=== PATIENT | male | born 1940 | race Caucasian/White ===

== ENCOUNTER 2019-08-05 06:00 | Emergency (ER) | payer MEDICARE ==
[~2019-08-05] VITALS: Ht 167.6 cm; Wt 109.3 kg
--- NOTE | 2019-08-05 06:15 | NUR ---
PT BIBRA 102 FOR C/O R RIB CAGE PAIN S/P FALL. - KO. NOTED W/ SMALL SKIN TEAR ON NOSE BRIDGE. REC'D FENTANYL 100MCG AND ZOFRAN ON THE FIELD. PT AAOX4, PLACED ON 2 LITERS O2 SATTING AT 96%. CONNECTED TO THE MONITOR AND POX
[2019-08-05] MEDS ORDERED: TDAP [DIPH/PERTUSSIS/TET] 0.5 ML VIAL IM ONE ×2 (06:27→06:30)
[2019-08-05] MEDS ORDERED: BACITRACIN ZINC OINT PACKET 1 EA PACKET TP ONE (06:30)
--- NOTE | 2019-08-05 06:31 | NUR ---
PT TAKEN TO CT
--- NOTE | 2019-08-05 06:57 | NUR ---
PT BACK FROM CT
--- NOTE | 2019-08-05 08:53 | NUR ---
PATIENT ABLE TO STAND UP WITH MINIMAL ASSISTANCE. C/O PAIN ON RIGHT RIB. PATIENT WAS ABLE TO VOID WITH A URINAL.
[2019-08-05] MEDS ORDERED: HYDROCODONE/APAP 5/325MG 1 EACH TABLET ONE (08:55)
[2019-08-05] MEDS ORDERED: HYDROCODONE/APAP 5/325MG 1 EACH TABLET PO ONE (09:00)
--- NOTE | 2019-08-05 09:10 | NUR ---
Patient discharged to home in stable condition. Written and verbal after care instructions given to daughter and verbalizes understanding of instruction. IV removed. Catheter intact and site benign. Pressure and 4x4 applied to site. No bleeding noted.
[2019-08-05 09:11] VITALS: BP 113/70
== END 2019-08-05 09:12 | disposition home or self-care (01) ==
LOC: ER 06:02
DX: S20.211A Contusion of right front wall of thorax, initial encounter (principal); S00.31XA Abrasion of nose, initial encounter; S09.8XXA Other specified injuries of head, initial encounter; I10 Essential (primary) hypertension; E78.5 Hyperlipidemia, unspecified; J44.9 Chronic obstructive pulmonary disease, unspecified; F32.9 Major depressive disorder, single episode, unspecified; Z98.890 Other specified postprocedural states; W01.198A Fall on same level from slipping, tripping and stumbling with subsequent striking against other object, initial encounter; Y93.89 Activity, other specified; Y92.89 Other specified places as the place of occurrence of the external cause; Y99.8 Other external cause status
CPT/HCPCS: 70450; 71045; 72125; 90471; 90715; 99285; A6403

== ENCOUNTER 2020-06-17 19:57 | Inpatient (IN) | payer MEDICARE ==
[~2020-06-17] VITALS: Ht 167.6 cm; Wt 97.1 kg
[2020-06-17] MEDS ORDERED: FUROSEMIDE 40 MG/4 ML VIAL IV ONE (20:00)
[2020-06-17] MEDS ORDERED: FUROSEMIDE 40 MG/4 ML VIAL ONE (20:11)
--- NOTE | 2020-06-17 20:32 | NUR ---
VINNYID SWABBED, SENT TO LAB.
[2020-06-17 20:41] LABS: BASOPHILS % (AUTO) 0.2 % (0.0-2.0); EOSINOPHILS % (AUTO) 0.1 % (0.0-6.0); HEMATOCRIT 45 % (39-51); HEMOGLOBIN 14.7 g/dL (13.5-17.5); LYMPHOCYTES # (AUTO) 1.9 /CMM (0.8-4.8); LYMPHOCYTES % (AUTO) 15.4 % (20.0-44.0); MEAN CORPUSCULAR HGB CONC 33 g/dl (31.0-36.0); MEAN CORPUSCULAR VOLUME 91 fL (80-96); MONOCYTES # (AUTO) 0.6 /CMM (0.1-1.30); MONOCYTES % (AUTO) 5.2 % (2.0-12.0); NEUTROPHILS # (AUTO) 9.5 /CMM (1.8-8.9); NEUTROPHILS % (AUTO) 79.1 % (43.0-81.0); PLATELET COUNT (AUTO) 178 /CMM (150-450); RED BLOOD CELL COUNT(AUTO) 4.93 MIL/uL (4.5-6.0); WHITE BLOOD COUNT (AUTO) 12.1 K/uL (4.3-11.0)
[2020-06-17 21:08] LABS: CALCIUM, SERUM 9.1 mg/dL (8.5-10.1); CARBON DIOXIDE 30 mmol/L (21-32); CHLORIDE 102 mmol/L (98-107); CREATININE 1.2 mg/dL (0.6-1.3); GLUCOSE 147 mg/dL (74-106); SODIUM SERUM 140 mmol/L (136-145); UREA NITROGEN, BLOOD 23 mg/dL (7-18)
[2020-06-17 21:13] LABS: ALANINE AMINOTRANSFERASE 39 U/L (12-78); ALBUMIN 3.6 g/dL (3.4-5.0); ALKALINE PHOSPHATASE 91 U/L (46-116); ASPARTATE AMINOTRANSFERASE 36 U/L (15-37); B-TYPE NATRIURETIC PEPTIDE 870 PG/ML (0-125); BILIRUBIN,DIRECT 0.1 mg/dL (0.0-0.2); BILIRUBIN,TOTAL 0.5 mg/dL (0.2-1.0); TOTAL PROTEIN, SERUM 7.2 g/dL (6.4-8.2)
--- NOTE | 2020-06-17 21:28 | NUR ---
CALL FROM LAB. RAPID COVID NEGATIVE.
[2020-06-17] MEDS ORDERED: ONDANSETRON HCL/PF 4 MG/2 ML VIAL IVP PRN (22:00)
[2020-06-17] MEDS ORDERED: Z GUARD REMEDY 2 OZ OINT TP PRN (22:00)
[2020-06-17] MEDS ORDERED: MAGNESIUM HYDROXIDE 30 ML UDC PO PRN (22:00)
[2020-06-17] MEDS ORDERED: MAG HYDROX/AL HYDROX/SIMETH 30 ML UDC PO PRN (22:00)
[2020-06-17] MEDS ORDERED: HYDROCODONE/APAP 5/325MG TABLET PO PRN (22:00)
[2020-06-17] MEDS ORDERED: MORPHINE SULFATE INJ 2 MG/ML DISP.SYRIN IV PRN (22:00)
[2020-06-17] MEDS ORDERED: ACETAMINOPHEN 325 MG TABLET PO PRN (22:00)
--- NOTE | 2020-06-17 22:15 | NUR ---
PATIENT CAME TO ER BED 8 BIBRA C/O SOB FROM HOME. PATIENT HAS NOT BEEN TESTED FOR COVID. PATIENT IS AAOX4. PATIENT IS 88% OXYGEN SATURATION ON ROOM AIR. PATIENT IS PLACED ON 2L OF N/C AND IS SATURATING AT 95%. BREATHING EVENLY AND UNLABORED. CONNECTED TO ELECTRIC LOCOMOTIVE CRANE OPERATOR.
--- NOTE | 2020-06-17 22:45 | NUR ---
REPORT GIVEN TO CHAGO ORTEGA FOR THEO.
--- NOTE | 2020-06-17 23:22 | NUR ---
PATIENT TAKEN UP TO ASSIGN ROOM FOR THEO.
[2020-06-17] MEDS ORDERED: IOHEXOL-350 100 ML VIAL IV ONE (23:31)
[2020-06-17] MEDS ORDERED: IV NS 0.9% 250 ML IV ONE (23:31)
--- NOTE | 2020-06-18 00:05 | NUR ---
RN ADMITTING NOTE RECEIVED PATIENT FROM RADIOLOGY ,SP CT ANGIO, VIA HOSPITAL BED ACCOMPANIED BY 2 RN'S FROM [facility]. PATIENT IS ALERT AND ORIENTED X4. PATIENT ON 2 L OF OXYGEN VIA NC WITH RESPIRATIONS EVEN AND UNLABORED, TOLERATING WELL, SATURATION AT 98%. COMPREHENSIVE PHYSICAL ASSESSMENT AND PATIENT CARE DONE. BRUISING NOTED AT LEFT HAND. PHOTO TAKEN AND PLACED IN CHART. PATIENT CONTINENT WITGH URINAL AT BEDSIDE. CALL LIGHT WITHIN REACH, SAFETY MEASURES AND ISOLATION PRECAUTION IN PLACE, WILL CONTINUE MONITOR AND ASSESS THROUGHOUT THE SHIFT. WILL CARRY OUT MD ORDERS ACCORDINGLY.
--- NOTE | 2020-06-18 00:08 | NUR ---
PATIENT CAME FROM ER AT 2307, A/O X4. NO S/S OF DISTRESS NOTED. NO COMPLAIN OF PAIN. BROUGHT THE PT TO CT SCAN FOR CT PULMONARY ANGIOGRAM CONSENTED AND ATTACHED TO THE CHART. AFTER THE CT SCAN, PT TRANSFERRED TO JESUS AT ROOM 105 AND ENDORSED TO SHANNON VALDOVINOS.
[2020-06-18 00:10] VITALS: BP 132/68
--- NOTE | 2020-06-18 01:35 | NUR ---
RN NOTE CT ANGIO RESULTED. DR JESSA MEJIA WAS NOTIFIED, AND ACKNOWLEDGED WITH NO NEW ORDERS. COMPLIANCE PROFESSIONAL AWARE.
[2020-06-18] MEDS: ENOXAPARIN SODIUM 40 MG/0.4 ML DISP.SYRIN SQ SCH ×2 (01:41→21:22)
[2020-06-18 01:52] LABS: C-REACTIVE PROTEIN 0.8 mg/dL (0.0-0.9)
[2020-06-18] MEDS: TRAMADOL HCL 50 MG TABLET PO PRN ×3 (03:32→20:08)
[2020-06-18 04:00] VITALS: BP_SYST 151; BP_SYST 158; BP_DIAS 70; BP_DIAS 90
--- NOTE | 2020-06-18 07:27 | NUR ---
RN CLOSING NOTE PATIENT REMAINS IN ROOM IN NO SIGNS OF RESPIRATORY DISTRESS, SATURATION AT >95% ON 2L O2 VIA NC. APPROPRIATE ISOLATION PRECAUTIONS MAINTAINED. SAFETY MEASURES IMPLEMENTED, BED IN LOWEST POSITION, LOCKED, SIDE RAILS UP, CALL LIGHT WITHIN REACH. ALL NEEDS AND ORDERS ADDRESSED DURING THE SHIFT. IV ACCESS MAINTAINED INTACT, SECURED AND FLUSHING WELL. ALL DUE MEDS GIVEN ORDERED & SCHEDULED ; PATIENT TOLERATED WELL. PATIENT KEPT CLEAN AND COMFORTABLE WITHIN THE SHIFT. PATIENT ENDORSED TO MARIA DE JESUS RN WITH STABLE VITAL SIGN AND FOR CONTINUATION OF CARE.
[2020-06-18 07:48] LABS: BASOPHILS # (AUTO) 0.1 /CMM (0.0-0.2); BASOPHILS % (AUTO) 0.6 % (0.0-2.0); EOSINOPHILS % (AUTO) 0.2 % (0.0-6.0); HEMATOCRIT 45 % (39-51); HEMOGLOBIN 14.7 g/dL (13.5-17.5); LYMPHOCYTES % (AUTO) 15.4 % (20.0-44.0); MEAN CORPUSCULAR HGB CONC 33 g/dl (31.0-36.0); MEAN CORPUSCULAR VOLUME 90 fL (80-96); MONOCYTES # (AUTO) 1.2 /CMM (0.1-1.30); MONOCYTES % (AUTO) 8.9 % (2.0-12.0); NEUTROPHILS # (AUTO) 9.8 /CMM (1.8-8.9); NEUTROPHILS % (AUTO) 74.9 % (43.0-81.0); PLATELET COUNT (AUTO) 173 /CMM (150-450); WHITE BLOOD COUNT (AUTO) 13.1 K/uL (4.3-11.0)
--- NOTE | 2020-06-18 07:49 | NUR ---
ARCHITECTURAL SUPERINTENDENT NOTE PATIENT IN BED ALERT ORIENTED, , ALL NEEDS ATTENDED , ON 2L NC NO SB NOTED AT THIS TIME , ON TELE MONITOR SR HR 78 , RT AC HL INTACT AND FLUSHED WELL , BED IN LOWEST AND LOCKED POSITION BED IN LOWEST AND LOCKED POSITION , CALL LIGHT WITHIN REACH , PLAN OF CARE DISCUSSED WITH PATIENT, WILL MONITOR
[2020-06-18 08:00] VITALS: BP 143/80
[2020-06-18] MEDS: ASPIRIN 81 MG TAB.CHEW PO SCH (08:33)
[2020-06-18] MEDS: FUROSEMIDE 40 MG/4 ML VIAL IV SCH ×2 (08:33→16:07)
[2020-06-18] MEDS ORDERED: VITA1TAB56 PO (08:55)
[2020-06-18] MEDS ORDERED: ALBU8.5H8 IH (08:55)
[2020-06-18] MEDS ORDERED: LEVO150T8 PO (08:55)
[2020-06-18] MEDS ORDERED: FURO-144 PO (08:55)
[2020-06-18] MEDS ORDERED: METO25TA3 PO (08:55)
[2020-06-18] MEDS ORDERED: POTA20TA83 PO (08:55)
[2020-06-18] MEDS ORDERED: ROSU5TAB PO (08:55)
[2020-06-18] MEDS ORDERED: ASPI-1169 PO (08:55)
[2020-06-18] MEDS ORDERED: DOCU-141 PO (08:55)
[2020-06-18] MEDS ORDERED: UBID100C13 PO (08:55)
[2020-06-18] MEDS ORDERED: TRAM50TA2 PO (08:55)
[2020-06-18] MEDS ORDERED: LANS30CA56 PO (08:55)
[2020-06-18] MEDS ORDERED: ALBU1.257 IH (08:55)
[2020-06-18] MEDS ORDERED: CALC500T52 PO (08:55)
[2020-06-18 09:46] LABS: CALCIUM, SERUM 9.3 mg/dL (8.5-10.1); CREATININE 0.8 mg/dL (0.6-1.3); MAGNESIUM 2.4 mg/dL (1.8-2.4); PHOSPHORUS 3.5 mg/dL (2.5-4.9); POTASSIUM 4.2 mmol/L (3.5-5.1)
[2020-06-18 09:57] LABS: THYROID STIMULATING HORMONE 2.194 uIU/mL (0.358-3.74)
[2020-06-18] MEDS ORDERED: TRAMADOL HCL 50 MG TABLET PO PRN (10:30)
[2020-06-18] MEDS ORDERED: ALBUTEROL FS 2.5 MG/3 ML VIAL.NEB IH PRN (10:30)
--- NOTE | 2020-06-18 11:22 | NUR ---
CYNTHIA ORTEGA NOTE [place] [facility] [place] ABLE TO [place] ,KEEP CLEAN DRY Addendum: 06/18/20 at 1159 by MARIA DE JESUS IRWIN RN HAVING LUNCH , ABLE TO EAT SELF, WILL MONITOR
[2020-06-18 12:00] VITALS: BP 125/81
--- NOTE | 2020-06-18 15:44 | NUR ---
CODING FILE CLERK NOTE PCR TEST DONE ORDERED GIVEN TO LAB SPOKE WITH CARRIE
[2020-06-18 16:00] VITALS: BP 130/61
--- NOTE | 2020-06-18 17:34 | NUR ---
PRODUCT MANAGEMENT INTERN NOTE SPOKE WITH DR CRAWLEY TO CLARIFY TRAMADOL ORDER, NOTIFIED PER PATIENT TAKING AT HOME Q6 HOUR PRN , OK TO CHANGE Q6 HOUR PRN , WILL F\U
--- NOTE | 2020-06-18 18:50 | NUR ---
WASTEWATER OPERATOR NOTES PT HAVING DINNER. ABLE TO FEED HIMSELF. ON 2L NC. NO SOB NOTED. CALL LIGHT WITHIN REACH. RAC LOCKED AND INTACT. FLUSHED WELL. BED IN LOWEST AND LACKED POSITION. WILL CONTINUE TO MONITOR.
--- NOTE | 2020-06-18 19:30 | NUR ---
COOK VEGETABLE OPENING NOTE RECEIVED PATIENT IN BED. A/OX2. ON OXYGEN 2L/MIN VIA NASAL CANNULA. RESPIRATIONS ARE EVEN AND UNLABORED. NO S/S SOB NOTED. C/O PAIN IN BOTH LEGS, WOULD LIKE HIS TRAMADOL. WILL ADMINISTER PAIN MEDICATION. EXTERNAL TELE MONITOR READ SINUS RHYTHM WITH PVC HR 69. IN NO APPARENT DISTRESS. IV ACCESS IN RAC#18 PATENT AND SALINE LOCKED. BED IS LOW AND LOCKED, HOB ELEVATED IN HIGH FOWLERS, SIDE RAILS UP X3, CALL LIGHT WITHIN REACH. WILL CONTINUE TO MONITOR THROUGHOUT SHIFT.
[2020-06-18 20:00] VITALS: BP 122/71
--- NOTE | 2020-06-18 20:09 | NUR ---
teletypewriter operator note administered prn tramadol 100mg for pain 8/10 in legs. patient was also concerned why he has not received his home medication of crestor, informed patient most medications on medication list have sindy converted or continues but the crestor does not have a dosage and if he can call someone who has access to his home to get the dosage and inform me.
[2020-06-18] MEDS: DOCUSATE SODIUM 100 MG CAPSULE PO SCH (21:22)
--- NOTE | 2020-06-18 21:28 | NUR ---
EMPLOYMENT CONSULTANT NOTE PATIENT INFORMED ME THAT HE CALLED A FAMILY MEMBER AND GOT HIS DOSAGE FOR HOME MEDICATION CRESTOR. IT IS 40MG. WILL INFORM STUDENT DEAN DRAFTER AUTOMOTIVE DESIGN JACKIE.
[2020-06-18] MEDS ORDERED: ROSU40TA PO (21:32)
--- NOTE | 2020-06-18 21:48 | NUR ---
BIAS MACHINE OPERATOR HELPER NOTE PLACED INFO FOR IN MED RECON. INFORMED AUTOMATIC SCREWMAKER SHYLA ABOUT PATIENT CONCERN. JENNIFER RN ASKED RN NAVDEEP IF MED WAS ORDERED NOW WILL NOT BE ABLE TO BE ACCESSED. RN SUP STATED NO D/T NOT AVAILABLE IN PHARMACY NIGHT LOCKER. PATIENT MADE AWARE THAT WE WILL ENDORSE TO TOMORROW SHIFT.
[2020-06-19] VITALS (7 sets, daily range): BP systolic 124–145; BP diastolic 64–82
[2020-06-19] MEDS: TRAMADOL HCL 50 MG TABLET PO PRN ×2 (06:10→15:55)
--- NOTE | 2020-06-19 06:11 | NUR ---
VIDEO PRODUCTION COORDINATOR NOTE ADMINISTERED PRN TRAMADOL 100MG FOR PAIN 8/10 IN BOTH LEGS. WILL REASSESS.
--- NOTE | 2020-06-19 07:13 | NUR ---
GRAPHITE DISK ASSEMBLER CLOSING NOTE PATIENT RESTING IN BED. A/OX2. TOLERATING ROOM AIR, O2 SAT 97%. RESP DISTRESS/ MANAGED PAIN WITH TRAMADOL. TELE MONITOR READ SINUS RHYTHM. NO DISTRESS. IV ACCESS MAINTAINED IN RAC#18. BED REMAINS LOW AND LOCKED, HOB ELEVATED IN HIGH FOWLERS, SIDE RAILS UP X3, CALL LIGHT WITHIN REACH. WILL ENDORSE TO NEXT SHIFT
--- NOTE | 2020-06-19 07:45 | NUR ---
PROCUREMENT ANALYST OPENING NOTE RECEIVED PT IN BED. AWAKE, A/O X4. ON ROOM AIR, O2 SAT @96%. NO SOB OR ANY RESPIRATORY DISTRESS AT THIS TIME. TELE MONITOR READS SR. IV ACCESS AT R AC #18 INTACT, PATENT AND FLUSHED. SAFETY MEASURES IN PLACE. BED LOCKED AND AT LOWEST POSITION WITH SIDE RAILS UP X2. HOB ELEVATED. NO PAIN REPORTED AT THIS TIME. WILL CONTINUE TO MONITOR
[2020-06-19] MEDS: LEVOTHYROXINE SODIUM 50 MCG TABLET PO SCH (08:23)
[2020-06-19] MEDS: POTASSIUM CHLORIDE 20 MEQ TAB.PRT.SR PO SCH (08:23)
[2020-06-19] MEDS: FUROSEMIDE 40 MG/4 ML VIAL IV SCH (08:23)
[2020-06-19] MEDS: CALCIUM CARBONATE (1250) 500 MG TABLET PO SCH (08:23)
[2020-06-19] MEDS: ASPIRIN 81 MG TAB.CHEW PO SCH (08:23)
[2020-06-19] MEDS: PANTOPRAZOLE 40 MG TABLET.DR PO SCH (08:23)
[2020-06-19] MEDS: METOPROLOL SUCCINATE 25 MG TAB.SR.24H PO SCH (08:24)
[2020-06-19] MEDS ORDERED: ASPIRIN 81 MG TAB.CHEW PO SCH (09:00)
--- NOTE | 2020-06-19 09:30 | NUR ---
RN NOTES LAB CALLED. PCR RESULT NEGATIVE. CHARGE NURSE AWARE.
[2020-06-19] MEDS: FUROSEMIDE 100 MG/10 ML VIAL IV SCH ×3 (12:37→21:48)
[2020-06-19 15:35] LABS: BILIRUBIN,URINE NEGATIVE (NEGATIVE); COLOR,URINE YELLOW (YELLOW); LEUKOCYTE ESTERASE ,URINE NEGATIVE (NEGATIVE); NITRITE, URINE NEGATIVE (NEGATIVE); PH,URINE 7.5 (5.0-8.0); PROTEIN,URINE NEGATIVE (NEGATIVE); UGLUCOSE NEGATIVE (NEGATIVE); UROBILINOGEN,URINE 0.2 EU/dL (0.2)
--- NOTE | 2020-06-19 18:55 | NUR ---
RAILROAD REPAIRER CLOSING NOTE PT COMFORTABLY SITTING IN CHAIR. A/O X4. ON ROOM AIR, O2 SAT @97%. NO SOB OR ANY RESPIRATORY DISTRESS AT THIS TIME. TELE MONITOR READS SR. IV ACCESS AT R AC #18 INTACT, PATENT AND FLUSHED. ALL DUE MEDS GIVEN. NEEDS ATTENDED. SAFETY MEASURES IN PLACE. BED LOCKED AND AT LOWEST POSITION WITH SIDE RAILS UP X2. HOB ELEVATED. NO PAIN REPORTED AT THIS TIME. WILL ENDORSE TO NIGHT NURSE FOR THEO.
--- NOTE | 2020-06-19 20:00 | NUR ---
RN NOTES PT COMFORTABLY SITTING IN CHAIR. A/O X4. ON ROOM AIR, O2 SAT @97%. NO SOB OR ANY RESPIRATORY DISTRESS AT THIS TIME. TELE MONITOR READS SR. IV ACCESS AT R AC #18 INTACT, PATENT AND FLUSHED. NO S/S OF ANY DISCOMFORT. SAFETY MEASURES IN PLACE. BED LOCKED AND AT LOWEST POSITION WITH SIDE RAILS UP X2. CALL LIGHT WITHIN REACH. WILL CONTINUE TO MONITOR.
--- NOTE | 2020-06-19 21:00 | NUR ---
TRANSFERRED PT TO ROOM 324-2, ACLS PER PROTOCOL. PATIENT A/OX4, ABLE TO MAKE NEEDS KNOWN. VITAL SIGNS WNL. ALL BELONGINGS, HEARING AIDS, GLASSES, AND CELLPHONE TRANSFERRED WITH PATIENT. GAVE REPORT TO
--- NOTE | 2020-06-19 21:45 | NUR ---
RN NOTES PT RECEIVED FROM JESUS IN STABLE CONDITION. WILL CONTINUE TO MONITOR. Addendum: 06/20/20 at 0641 by SURYA OCAMPO RN PT COMFORTABLY IN BED. A/O X4. ON ROOM AIR, O2 SAT @97%. NO SOB OR ANY RESPIRATORY DISTRESS AT THIS TIME. TELE MONITOR READS SR. IV ACCESS AT R AC #18 INTACT, PATENT AND FLUSHED. NEEDS ATTENDED. SAFETY MEASURES IN PLACE. BED LOCKED AND AT LOWEST POSITION WITH SIDE RAILS UP X2. HOB ELEVATED. NO PAIN REPORTED AT THIS TIME. WILL CONTINUE TO MONITOR.
[2020-06-19] MEDS ORDERED: FUROSEMIDE 40 MG/4 ML VIAL ONE (21:46)
[2020-06-19] MEDS: DOCUSATE SODIUM 100 MG CAPSULE PO SCH (21:52)
[2020-06-19] MEDS: ENOXAPARIN SODIUM 40 MG/0.4 ML DISP.SYRIN SQ SCH (21:54)
[2020-06-20] VITALS: BP 119/72
[2020-06-20 00:21] VITALS: BP 119/72
[2020-06-20 04:00] VITALS: BP 134/66
[2020-06-20 04:45] VITALS: BP 134/66
[2020-06-20] MEDS: TRAMADOL HCL 50 MG TABLET PO PRN ×2 (05:35→13:11)
--- NOTE | 2020-06-20 06:41 | NUR ---
RN NOTES PT COMFORTABLY SITTING IN CHAIR. A/O X4. ON ROOM AIR, O2 SAT @97%. NO SOB OR ANY RESPIRATORY DISTRESS AT THIS TIME. TELE MONITOR READS SR. IV ACCESS AT R AC #18 INTACT, PATENT AND FLUSHED. ALL DUE MEDS GIVEN. NEEDS ATTENDED. SAFETY MEASURES IN PLACE. BED LOCKED AND AT LOWEST POSITION WITH SIDE RAILS UP X2. HOB ELEVATED. NO PAIN REPORTED AT THIS TIME. WILL ENDORSE TO DAYSHIFT NURSE.
[2020-06-20 07:17] LABS: BASOPHILS # (AUTO) 0.1 /CMM (0.0-0.2); BASOPHILS % (AUTO) 0.8 % (0.0-2.0); EOSINOPHILS % (AUTO) 0.7 % (0.0-6.0); HEMATOCRIT 49 % (39-51); HEMOGLOBIN 16.4 g/dL (13.5-17.5); LYMPHOCYTES # (AUTO) 2.8 /CMM (0.8-4.8); LYMPHOCYTES % (AUTO) 18.8 % (20.0-44.0); MEAN CORPUSCULAR HGB CONC 34 g/dl (31.0-36.0); MEAN CORPUSCULAR VOLUME 89 fL (80-96); MONOCYTES # (AUTO) 1.5 /CMM (0.1-1.30); NEUTROPHILS # (AUTO) 10.4 /CMM (1.8-8.9); NEUTROPHILS % (AUTO) 69.7 % (43.0-81.0); PLATELET COUNT (AUTO) 200 /CMM (150-450); RED BLOOD CELL COUNT(AUTO) 5.48 MIL/uL (4.5-6.0)
[2020-06-20 07:23] LABS: CREATININE 0.9 mg/dL (0.6-1.3); POTASSIUM 3.4 mmol/L (3.5-5.1)
[2020-06-20] MEDS: PANTOPRAZOLE 40 MG TABLET.DR PO SCH (07:38)
[2020-06-20] MEDS: LEVOTHYROXINE SODIUM 50 MCG TABLET PO SCH (07:38)
[2020-06-20 08:00] VITALS: BP 99/72
[2020-06-20] MEDS: ASPIRIN 81 MG TAB.CHEW PO SCH (08:03)
[2020-06-20] MEDS: METOPROLOL SUCCINATE 25 MG TAB.SR.24H PO SCH (08:03)
[2020-06-20] MEDS: POTASSIUM CHLORIDE 20 MEQ TAB.PRT.SR PO SCH (08:03)
[2020-06-20] MEDS: CALCIUM CARBONATE (1250) 500 MG TABLET PO SCH (08:03)
[2020-06-20] MEDS ORDERED: IV NS 0.9% 250 ML IV ONE (10:20)
[2020-06-20] MEDS ORDERED: IOHEXOL-350 100 ML VIAL IV ONE (10:20)
[2020-06-20] MEDS ORDERED: NITROGLYCERIN 0.4 MG/TAB BOTTLE SL ONE (10:30)
[2020-06-20] MEDS ORDERED: METOPROLOL TARTRATE INJ 5 MG/5 ML AMPUL IVP PRN (10:30)
[2020-06-20] MEDS ORDERED: METOPROLOL TARTRATE INJ 5 MG/5 ML AMPUL ONE (10:38)
[2020-06-20 10:43] VITALS: BP 129/79
--- NOTE | 2020-06-20 16:20 | NUR ---
MS/RN - Discharge Patient is alert and oriented X 4, afebrile, denies chest pain, on room air without distress, ambulates with assist, no c/o weakness, denies dizziness. Reviewed discharge instructions with patient and he verbalized full understanding of all teachings including medications and follow-up care with PCP within 1 week. No new medications ordered. Patient was advised to seek immediate medical attention if he experience chest pain, shortness of breath, palpitations, abdominal pain/distention, intractable nausea and vomiting, diarrhea, weakness, or any other emergent concerns. All belongings with patient and he deny any missing items. Skin is intact except for left hand bruise, picture taken. Saline lock removed on the RAC with catheter tip intact, no redness, no swelling noted at the site. Discharge paperwork signed and copies were given per protocol. Accompanied to the lobby via wheelchair and transported by private car by daughter.
== END 2020-06-20 18:45 | disposition home health service (06) | DRG 280 ==
LOC: ER 20:00 → TELE 22:33 → TELE1 06-18 00:11 → TELE 06-19 21:10 → MED 06-20 09:56
PROVIDERS: ADMIT Nurse Practitioner Acute Care; ATTEND Internal Medicine
DX: I11.0 Hypertensive heart disease with heart failure (principal); J96.01 Acute respiratory failure with hypoxia; I21.A1 Myocardial infarction type 2; J44.0 Chronic obstructive pulmonary disease with (acute) lower respiratory infection; D68.69 Other thrombophilia; N17.9 Acute kidney failure, unspecified; J44.9 Chronic obstructive pulmonary disease, unspecified; Z20.822 Contact with and (suspected) exposure to COVID-19; R73.9 Hyperglycemia, unspecified; E78.5 Hyperlipidemia, unspecified; M06.9 Rheumatoid arthritis, unspecified; Z87.891 Personal history of nicotine dependence; L30.9 Dermatitis, unspecified; Z95.5 Presence of coronary angioplasty implant and graft; Z96.653 Presence of artificial knee joint, bilateral; I25.10 Atherosclerotic heart disease of native coronary artery without angina pectoris; G62.9 Polyneuropathy, unspecified; F32.9 Major depressive disorder, single episode, unspecified; K44.9 Diaphragmatic hernia without obstruction or gangrene; I50.33 Acute on chronic diastolic (congestive) heart failure
CPT/HCPCS: 36415; 71045-TC; 75574; 80048-TC; 80061-TC; 80076-TC; 82550-TC; 82728-TC; 83605-TC; 83615-TC; 83735-TC; 83880; 84100-TC; 84443-TC; 84484-TC; 85025-TC; 85378-TC; 85385-TC; 85730-TC; 86140-TC; 87040-TC; 87081-TC; 87086-TC; 93307-TC; C9803; G0378; J1650; J1940; J3490; J7050; Q9967; U0003

== ENCOUNTER 2023-05-10 15:02 | Inpatient (IN) | payer MEDICARE ==
[~2023-05-10] VITALS: Ht 167.6 cm; Wt 94.3 kg
[~2023-05-10 15:02] MED LIST: ALBU1.257 IH; ALBU8.5H8 IH; ASPI-1169 PO; CALC500T52 PO; DOCU-141 PO; FURO-144 PO; LANS30CA56 PO; LEVO150T8 PO; METO25TA3 PO; POTA20TA83 PO; ROSU40TA PO; ROSU5TAB PO; TRAM50TA2 PO; UBID100C13 PO; VITA1TAB56 PO
[2023-05-10] MEDS ORDERED: ALLO100T PO (16:02)
[2023-05-10] MEDS ORDERED: METO25TA6 PO (16:02)
[2023-05-10] MEDS ORDERED: MAGN64TA7 PO (16:02)
[2023-05-10] MEDS ORDERED: ALPR0.5T PO (16:02)
[2023-05-10] MEDS ORDERED: LANS15CA18 PO (16:02)
[2023-05-10] MEDS ORDERED: METO2.5T2 PO (16:02)
[2023-05-10] MEDS ORDERED: FLUT1DIS3 IH (16:02)
[2023-05-10] MEDS ORDERED: CALC-903 PO (16:02)
[2023-05-10 16:25] LABS: BASOPHILS % (AUTO) 0.2 % (0.0-2.0); HEMATOCRIT 38 % (39-51); HEMOGLOBIN 12.1 g/dL (13.5-17.5); LYMPHOCYTES # (AUTO) 1.2 K/uL (0.8-4.8); LYMPHOCYTES % (AUTO) 6.8 % (20.0-44.0); MEAN CORPUSCULAR HEMOGLOBIN 27 PG (26.0-33.0); MEAN CORPUSCULAR HGB CONC 32 g/dl (31.0-36.0); MEAN CORPUSCULAR VOLUME 85 fL (80-96); MONOCYTES # (AUTO) 0.9 K/uL (0.1-1.30); MONOCYTES % (AUTO) 5.5 % (2.0-12.0); NEUTROPHILS # (AUTO) 14.9 K/uL (1.8-8.9); NEUTROPHILS % (AUTO) 87.5 % (43.0-81.0); PLATELET COUNT (AUTO) 152 K/uL (150-450); RED BLOOD CELL COUNT(AUTO) 4.45 MIL/uL (4.5-6.0); RED CELL DISTRIBUTION WIDTH 16.4 % (11.5-15.0)
[2023-05-10 16:34] LABS: CALCIUM, SERUM 8.7 mg/dL (8.5-10.1); CARBON DIOXIDE 26 mmol/L (21-32); CHLORIDE 101 mmol/L (98-107); CREATININE 1.1 mg/dL (0.6-1.3); GLUCOSE 165 mg/dL (74-106); POTASSIUM 3.7 mmol/L (3.5-5.1); SODIUM SERUM 139 mmol/L (136-145); UREA NITROGEN, BLOOD 25 mg/dL (7-18)
[2023-05-10 16:49] LABS: ALANINE AMINOTRANSFERASE 43 U/L (12-78); ALBUMIN 3.5 g/dL (3.4-5.0); ALKALINE PHOSPHATASE 114 U/L (46-116); ASPARTATE AMINOTRANSFERASE 43 U/L (15-37); BILIRUBIN,DIRECT 0.2 mg/dL (0.0-0.2); BILIRUBIN,TOTAL 0.7 mg/dL (0.2-1.0); NT-PRO BNP 2044 pg/mL (0-125); TOTAL PROTEIN, SERUM 7.3 g/dL (6.4-8.2)
[2023-05-10] MEDS ORDERED: FUROSEMIDE 40 MG/4 ML VIAL IV ONE (17:30)
[2023-05-10] MEDS ORDERED: POTASSIUM CHLORIDE 20 MEQ TAB.PRT.SR PO ONE (17:30)
[2023-05-10] MEDS ORDERED: ASPIRIN EC 325 MG TABLET.DR PO ONE ×2 (18:30→18:39)
[2023-05-10] MEDS ORDERED: ACETAMINOPHEN ES 500 MG TABLET ONE (19:51)
[2023-05-10] MEDS ORDERED: GABAPENTIN 100 MG CAPSULE ONE (19:52)
[2023-05-10] MEDS ORDERED: ACETAMINOPHEN ES 500 MG TABLET PO ONE (20:00)
[2023-05-10] MEDS ORDERED: GABAPENTIN 100 MG CAPSULE PO ONE (20:00)
[2023-05-10] MEDS ORDERED: ALBUTEROL FS 2.5 MG/3 ML VIAL.NEB IH PRN (21:30)
[2023-05-10] MEDS ORDERED: ZOLPIDEM TARTRATE 5 MG TABLET PO PRN (21:30)
[2023-05-10] MEDS ORDERED: MAGNESIUM HYDROXIDE 30 ML UDC PO PRN (21:30)
[2023-05-10] MEDS ORDERED: ONDANSETRON HCL/PF 4 MG/2 ML VIAL IVP PRN (21:30)
[2023-05-10] MEDS ORDERED: Z GUARD REMEDY 4 OZ OINT TP PRN (21:30)
[2023-05-10] MEDS ORDERED: DOCUSATE SODIUM 100 MG CAPSULE PO PRN (21:30)
[2023-05-10] MEDS ORDERED: ACETAMINOPHEN 325 MG TABLET PO PRN (21:30)
[2023-05-10] MEDS ORDERED: MAG HYDROX/AL HYDROX/SIMETH 30 ML UDC PO PRN (21:30)
[2023-05-10] MEDS ORDERED: ALBUTEROL HALF STRENGTH 1.25 MG/3 ML VIAL.NEB IH PRN (21:30)
[2023-05-10 21:45] VITALS: BP 110/62; TEMP 97.8; O2SAT 97
[2023-05-10] MEDS ORDERED: LEVOFLOXACIN 500 MG /D5W 100ML 100 ML IV ONE (22:00)
[2023-05-10] MEDS ORDERED: LEVOFLOXACIN 500 MG /D5W 100ML 500 MG in PREMIX 1 EA IV SCH (22:00)
[2023-05-10] MEDS: ATORVASTATIN 40 MG TABLET PO SCH (22:56)
[2023-05-10] MEDS ORDERED: TRAMADOL HCL 50 MG TABLET PO PRN (23:30)
[2023-05-11] VITALS: BP 137/67; TEMP 97.7; O2SAT 96
[2023-05-11 00:11] VITALS: BP 110/62; TEMP 97.8; O2SAT 96
[2023-05-11 04:20] VITALS: BP 120/63; TEMP 97.8; O2SAT 96
[2023-05-11 06:53] LABS: BASOPHILS % (AUTO) 0.3 % (0.0-2.0); EOSINOPHILS # (AUTO) 0.1 K/uL (0.0-0.7); EOSINOPHILS % (AUTO) 0.4 % (0.0-6.0); HEMATOCRIT 34 % (39-51); LYMPHOCYTES # (AUTO) 2.9 K/uL (0.8-4.8); LYMPHOCYTES % (AUTO) 17.5 % (20.0-44.0); MEAN CORPUSCULAR HEMOGLOBIN 27 PG (26.0-33.0); MEAN CORPUSCULAR HGB CONC 32 g/dl (31.0-36.0); MEAN CORPUSCULAR VOLUME 85 fL (80-96); MONOCYTES # (AUTO) 1.2 K/uL (0.1-1.30); MONOCYTES % (AUTO) 7.2 % (2.0-12.0); NEUTROPHILS # (AUTO) 12.1 K/uL (1.8-8.9); NEUTROPHILS % (AUTO) 74.6 % (43.0-81.0); PLATELET COUNT (AUTO) 136 K/uL (150-450); RED BLOOD CELL COUNT(AUTO) 4.03 MIL/uL (4.5-6.0); RED CELL DISTRIBUTION WIDTH 16.3 % (11.5-15.0); WHITE BLOOD COUNT (AUTO) 16.3 K/uL (4.3-11.0)
[2023-05-11] MEDS ORDERED: BUMETANIDE INJ 0.25 MG/ML VIAL IV ONE (07:00)
[2023-05-11 07:07] LABS: CALCIUM, SERUM 8.7 mg/dL (8.5-10.1); MAGNESIUM 2.7 mg/dL (1.8-2.4); PHOSPHORUS 3.7 mg/dL (2.5-4.9); POTASSIUM 4.2 mmol/L (3.5-5.1)
[2023-05-11 08:00] VITALS: BP 108/57; TEMP 98.6; O2SAT 100
[2023-05-11] MEDS: CALCIUM CARBONATE (1250) 500 MG TABLET PO SCH (08:36)
[2023-05-11] MEDS: PANTOPRAZOLE 40 MG TABLET.DR PO SCH (08:36)
[2023-05-11] MEDS: LEVOTHYROXINE SODIUM 75 MCG TABLET PO SCH (08:36)
[2023-05-11] MEDS: ALLOPURINOL 100 MG TABLET PO SCH (08:37)
[2023-05-11] MEDS: METOPROLOL TARTRATE 25 MG TABLET PO SCH ×2 (08:38→21:30)
[2023-05-11] MEDS: FLUTICASONE/VILANTEROL 1 EACH BLST.W.DEV IH SCH (08:39)
[2023-05-11] MEDS: VITAMIN B COMP W-C 1 TAB TABLET PO SCH (08:39)
[2023-05-11] MEDS ORDERED: ALPRAZOLAM 0.5 MG TABLET PO SCH (09:00)
[2023-05-11] MEDS: ASPIRIN 81 MG TAB.CHEW PO SCH (09:55)
[2023-05-11] MEDS ORDERED: BUMETANIDE INJ 4 MG in IV NS 0.9% 24 ML IV ONE (10:00)
[2023-05-11] MEDS ORDERED: TRAMADOL HCL 50 MG TABLET PO SCH (10:30)
[2023-05-11] MEDS: ALPRAZOLAM 0.5 MG TABLET PO PRN (14:45)
[2023-05-11 18:55] VITALS: BP 115/65; TEMP 97.4; O2SAT 99
[2023-05-11 20:00] VITALS: BP 120/62; TEMP 97.8; O2SAT 99
[2023-05-11] MEDS: LEVOFLOXACIN 250 MG /D5W 50 ML 250 MG in PREMIX 1 EA IV SCH (21:29)
[2023-05-11] MEDS: ATORVASTATIN 40 MG TABLET PO SCH ×2 (21:31→22:00)
[2023-05-11] MEDS: TRAMADOL HCL 50 MG TABLET PO PRN (23:08)
[2023-05-12] VITALS: BP 104/58; TEMP 97.5; O2SAT 100
[2023-05-12 04:00] VITALS: BP 106/59; TEMP 97.5; O2SAT 100
[2023-05-12 06:41] LABS: BASOPHILS # (AUTO) 0.1 K/uL (0.0-0.2); BASOPHILS % (AUTO) 0.6 % (0.0-2.0); EOSINOPHILS # (AUTO) 0.4 K/uL (0.0-0.7); EOSINOPHILS % (AUTO) 3.1 % (0.0-6.0); HEMATOCRIT 35 % (39-51); HEMOGLOBIN 11.3 g/dL (13.5-17.5); LYMPHOCYTES # (AUTO) 2.7 K/uL (0.8-4.8); LYMPHOCYTES % (AUTO) 22.7 % (20.0-44.0); MEAN CORPUSCULAR HEMOGLOBIN 27 PG (26.0-33.0); MEAN CORPUSCULAR HGB CONC 32 g/dl (31.0-36.0); MEAN CORPUSCULAR VOLUME 85 fL (80-96); MONOCYTES # (AUTO) 1.1 K/uL (0.1-1.30); MONOCYTES % (AUTO) 9.1 % (2.0-12.0); NEUTROPHILS # (AUTO) 7.6 K/uL (1.8-8.9); NEUTROPHILS % (AUTO) 64.5 % (43.0-81.0); PLATELET COUNT (AUTO) 143 K/uL (150-450); RED BLOOD CELL COUNT(AUTO) 4.14 MIL/uL (4.5-6.0); RED CELL DISTRIBUTION WIDTH 16.1 % (11.5-15.0); WHITE BLOOD COUNT (AUTO) 11.7 K/uL (4.3-11.0)
[2023-05-12] MEDS: LEVOTHYROXINE SODIUM 75 MCG TABLET PO SCH (06:59)
[2023-05-12] MEDS: PANTOPRAZOLE 40 MG TABLET.DR PO SCH (06:59)
[2023-05-12 07:15] LABS: CALCIUM, SERUM 9.2 mg/dL (8.5-10.1); CARBON DIOXIDE 28 mmol/L (21-32); CHLORIDE 98 mmol/L (98-107); GLUCOSE 108 mg/dL (74-106); MAGNESIUM 2.4 mg/dL (1.8-2.4); POTASSIUM 3.9 mmol/L (3.5-5.1); SODIUM SERUM 135 mmol/L (136-145); UREA NITROGEN, BLOOD 22 mg/dL (7-18)
[2023-05-12 07:30] VITALS: BP 109/72; TEMP 98.8; O2SAT 100
[2023-05-12] MEDS: FLUTICASONE/VILANTEROL 1 EACH BLST.W.DEV IH SCH (08:11)
[2023-05-12] MEDS: ASPIRIN 81 MG TAB.CHEW PO SCH (08:13)
[2023-05-12] MEDS: TRAMADOL HCL 50 MG TABLET PO PRN ×2 (08:13→19:47)
[2023-05-12] MEDS: ALLOPURINOL 100 MG TABLET PO SCH (08:13)
[2023-05-12] MEDS: CALCIUM CARBONATE (1250) 500 MG TABLET PO SCH (08:13)
[2023-05-12] MEDS: VITAMIN B COMP W-C 1 TAB TABLET PO SCH (08:13)
[2023-05-12] MEDS: METOPROLOL TARTRATE 25 MG TABLET PO SCH ×2 (08:15→21:23)
[2023-05-12] MEDS ORDERED: BUMETANIDE INJ 0.25 MG/ML VIAL IV ONE ×2 (09:30→10:00)
[2023-05-12] MEDS: ALPRAZOLAM 0.5 MG TABLET PO PRN (13:30)
[2023-05-12 16:00] VITALS: BP 114/61; TEMP 98.1; O2SAT 96
[2023-05-12 20:00] VITALS: BP 134/74; TEMP 98; O2SAT 99
[2023-05-12] MEDS: ATORVASTATIN 40 MG TABLET PO SCH ×2 (21:22→21:23)
[2023-05-12] MEDS: LEVOFLOXACIN 250 MG /D5W 50 ML 250 MG in PREMIX 1 EA IV SCH (22:29)
[2023-05-13] VITALS: BP 116/66; TEMP 98.1; O2SAT 95
[2023-05-13 04:00] VITALS: BP 113/67; TEMP 98.2; O2SAT 95
[2023-05-13 06:04] LABS: BASOPHILS # (AUTO) 0.1 K/uL (0.0-0.2); BASOPHILS % (AUTO) 0.5 % (0.0-2.0); EOSINOPHILS # (AUTO) 0.3 K/uL (0.0-0.7); HEMATOCRIT 36 % (39-51); HEMOGLOBIN 11.4 g/dL (13.5-17.5); LYMPHOCYTES # (AUTO) 2.6 K/uL (0.8-4.8); LYMPHOCYTES % (AUTO) 22.7 % (20.0-44.0); MEAN CORPUSCULAR HEMOGLOBIN 27 PG (26.0-33.0); MEAN CORPUSCULAR HGB CONC 32 g/dl (31.0-36.0); MEAN CORPUSCULAR VOLUME 85 fL (80-96); MONOCYTES % (AUTO) 8.5 % (2.0-12.0); NEUTROPHILS # (AUTO) 7.4 K/uL (1.8-8.9); NEUTROPHILS % (AUTO) 65.3 % (43.0-81.0); PLATELET COUNT (AUTO) 156 K/uL (150-450); RED BLOOD CELL COUNT(AUTO) 4.19 MIL/uL (4.5-6.0); RED CELL DISTRIBUTION WIDTH 16.6 % (11.5-15.0); WHITE BLOOD COUNT (AUTO) 11.3 K/uL (4.3-11.0)
[2023-05-13 06:21] LABS: CALCIUM, SERUM 9.4 mg/dL (8.5-10.1); CREATININE 0.9 mg/dL (0.6-1.3); MAGNESIUM 2.5 mg/dL (1.8-2.4); PHOSPHORUS 3.4 mg/dL (2.5-4.9)
[2023-05-13 08:00] VITALS: BP 115/73; TEMP 97.9; O2SAT 94
[2023-05-13] MEDS: ALPRAZOLAM 0.5 MG TABLET PO PRN (08:14)
[2023-05-13] MEDS: LEVOTHYROXINE SODIUM 75 MCG TABLET PO SCH (08:14)
[2023-05-13] MEDS: PANTOPRAZOLE 40 MG TABLET.DR PO SCH (08:15)
[2023-05-13] MEDS: CALCIUM CARBONATE (1250) 500 MG TABLET PO SCH (09:23)
[2023-05-13] MEDS: ALLOPURINOL 100 MG TABLET PO SCH (09:23)
[2023-05-13] MEDS: FLUTICASONE/VILANTEROL 1 EACH BLST.W.DEV IH SCH (09:23)
[2023-05-13] MEDS: ASPIRIN 81 MG TAB.CHEW PO SCH (09:24)
[2023-05-13] MEDS: TRAMADOL HCL 50 MG TABLET PO PRN (09:24)
[2023-05-13 09:25] VITALS: BP 115/73
[2023-05-13] MEDS: METOPROLOL TARTRATE 25 MG TABLET PO SCH (09:25)
[2023-05-13] MEDS: VITAMIN B COMP W-C 1 TAB TABLET PO SCH (09:29)
== END 2023-05-13 14:10 | disposition home health service (06) | DRG 280 ==
LOC: ER 15:02 → TELE 21:21
PROVIDERS: ADMIT Nurse Practitioner Acute Care; ATTEND Internal Medicine
DX: I11.0 Hypertensive heart disease with heart failure (principal); I21.A1 Myocardial infarction type 2; I50.43 Acute on chronic combined systolic (congestive) and diastolic (congestive) heart failure; J96.01 Acute respiratory failure with hypoxia; K21.9 Gastro-esophageal reflux disease without esophagitis; J44.9 Chronic obstructive pulmonary disease, unspecified; E78.5 Hyperlipidemia, unspecified; M06.9 Rheumatoid arthritis, unspecified; F32.A Depression, unspecified; Z88.0 Allergy status to penicillin; Z96.653 Presence of artificial knee joint, bilateral; I87.8 Other specified disorders of veins; Z95.828 Presence of other vascular implants and grafts; Z98.61 Coronary angioplasty status; Z86.718 Personal history of other venous thrombosis and embolism; Z87.891 Personal history of nicotine dependence; Z79.51 Long term (current) use of inhaled steroids; Z79.899 Other long term (current) drug therapy; D72.829 Elevated white blood cell count, unspecified; R79.89 Other specified abnormal findings of blood chemistry; M10.9 Gout, unspecified; E66.9 Obesity, unspecified; Z68.34 Body mass index [BMI] 34.0-34.9, adult; M19.90 Unspecified osteoarthritis, unspecified site; N40.0 Benign prostatic hyperplasia without lower urinary tract symptoms; D69.6 Thrombocytopenia, unspecified; I25.10 Atherosclerotic heart disease of native coronary artery without angina pectoris; E03.9 Hypothyroidism, unspecified
CPT/HCPCS: 36415; 71045-TC; 80048-TC; 80076-TC; 83735-TC; 83880; 84100-TC; 84484-TC; 85025-TC; 93307-TC; A4216; A4223; A6253; A6403; G0378; J1940; J1956; J3490; J7030; J7050

== ENCOUNTER 2024-07-19 07:50 | Inpatient (IN) | payer MEDICARE ==
[~2024-07-19] VITALS: Ht 167.6 cm; Wt 87.6 kg
[~2024-07-19 07:50] MED LIST changes: +ALLO100T PO; +ALPR0.5T PO; -ASPI-1169 PO; +CALC-903 PO; -CALC500T52 PO; +CEPH500C2 PO; +FLUT1DIS3 IH; +LANS15CA18 PO; -LANS30CA56 PO; +MAGN64TA7 PO; +METO2.5T2 PO; -METO25TA3 PO; +METO25TA6 PO; -ROSU5TAB PO; -UBID100C13 PO
[2024-07-19] MEDS ORDERED: LIDOCAINE 0.5%-EPI 1:200,000 50 ML VIAL ONE (08:02)
[2024-07-19 08:55] LABS: BASOPHILS # (AUTO) 0.1 K/uL (0.0-0.2); BASOPHILS % (AUTO) 0.7 % (0.0-2.0); EOSINOPHILS # (AUTO) 0.1 K/uL (0.0-0.7); EOSINOPHILS % (AUTO) 0.9 % (0.0-6.0); HEMATOCRIT 30 % (39-51); LYMPHOCYTES # (AUTO) 1.5 K/uL (0.8-4.8); MEAN CORPUSCULAR HEMOGLOBIN 30 PG (26.0-33.0); MEAN CORPUSCULAR HGB CONC 33 g/dl (31.0-36.0); MEAN CORPUSCULAR VOLUME 91 fL (80-96); MONOCYTES # (AUTO) 1.2 K/uL (0.1-1.30); MONOCYTES % (AUTO) 10.7 % (2.0-12.0); NEUTROPHILS % (AUTO) 73.7 % (43.0-81.0); PLATELET COUNT (AUTO) 213 K/uL (150-450); RED BLOOD CELL COUNT(AUTO) 3.35 MIL/uL (4.5-6.0); RED CELL DISTRIBUTION WIDTH 16.9 % (11.5-15.0); WHITE BLOOD COUNT (AUTO) 10.9 K/uL (4.3-11.0)
[2024-07-19 09:05] LABS: CALCIUM, SERUM 8.7 mg/dL (8.5-10.1); CARBON DIOXIDE 32 mmol/L (21-32); CHLORIDE 102 mmol/L (98-107); CREATININE 0.8 mg/dL (0.6-1.3); GLUCOSE 131 mg/dL (74-106); POTASSIUM 4.1 mmol/L (3.5-5.1); SODIUM SERUM 139 mmol/L (136-145); UREA NITROGEN, BLOOD 13 mg/dL (7-18)
[2024-07-19] MEDS ORDERED: ACETAMINOPHEN ES 500 MG TABLET ONE (09:24)
[2024-07-19] MEDS: ACETAMINOPHEN ES 500 MG TABLET PO ONE (09:26)
[2024-07-19 09:57] LABS: INR 1.08 (0.91-1.10); PARTIAL THROMBOPLASTIN TIME 29.3 SEC (24.3-34.3); PROTHROMBIN TIME 11.4 SECS (9.2-11.1)
[2024-07-19] MEDS ORDERED: MEMA5TAB PO (10:37)
[2024-07-19] MEDS ORDERED: GABA-532 PO (10:37)
[2024-07-19] MEDS ORDERED: DOCU250C14 PO (10:37)
[2024-07-19] MEDS ORDERED: ACET325T53 PO (10:37)
[2024-07-19] MEDS ORDERED: MAG-135 PO (10:37)
[2024-07-19] MEDS ORDERED: LOPE2CAP40 PO ×2 (10:37)
[2024-07-19] MEDS ORDERED: IPRA3AMP23 IH (10:37)
[2024-07-19] MEDS ORDERED: ATOR40TA PO (10:37)
[2024-07-19] MEDS ORDERED: POLY17PO4 PO (10:37)
[2024-07-19] MEDS ORDERED: AMIN30LI2 PO (10:37)
[2024-07-19] MEDS ORDERED: MAGN400O6 PO (10:37)
[2024-07-19] MEDS ORDERED: FURO80TA3 PO (10:37)
[2024-07-19] MEDS ORDERED: POTA-10 PO (10:37)
[2024-07-19] MEDS ORDERED: BISA10SU11 RC (10:37)
[2024-07-19] MEDS ORDERED: ASCO250T23 PO (10:37)
[2024-07-19] MEDS ORDERED: OXYC1TAB8 PO (10:37)
[2024-07-19] MEDS ORDERED: LEVO125T8 PO (10:37)
[2024-07-19] MEDS ORDERED: MULT-213 PO (10:37)
[2024-07-19] MEDS ORDERED: FAMO20TA8 PO (10:37)
[2024-07-19] MEDS ORDERED: ESCI10TA PO (10:37)
[2024-07-19] MEDS: MEMANTINE HCL 5 MG TABLET PO SCH ×2 (11:30→16:11)
[2024-07-19 12:00] VITALS: BP 111/73; TEMP 97.6; O2SAT 98
[2024-07-19] MEDS ORDERED: ONDANSETRON HCL/PF 4 MG/2 ML VIAL IVP PRN (12:00)
[2024-07-19] MEDS ORDERED: MAGNESIUM HYDROXIDE 30 ML UDC PO PRN (12:00)
[2024-07-19] MEDS ORDERED: MAG HYDROX/AL HYDROX/SIMETH 30 ML UDC PO PRN (12:00)
[2024-07-19] MEDS ORDERED: Z GUARD REMEDY 4 OZ OINT TP PRN (12:00)
[2024-07-19] MEDS ORDERED: BISACODYL SUPP (10 MG) 10 MG/SUPP.RECT SUPP.RECT RC PRN (12:00)
[2024-07-19] MEDS ORDERED: LEVOFLOXACIN 500 MG /D5W 100ML 500 MG in PREMIX 1 EA IV SCH (12:30)
[2024-07-19] MEDS ORDERED: ALBUTEROL FS 2.5 MG/3 ML VIAL.NEB NEB PRN (13:00)
[2024-07-19] MEDS ORDERED: ALBUTEROL FS 2.5 MG/3 ML VIAL.NEB NEB SCH (13:30)
[2024-07-19] MEDS: LEVOFLOXACIN 500 MG /D5W 100ML 500 MG in PREMIX 1 EA IV SCH (13:46)
[2024-07-19 14:24] LABS: THYROID STIMULATING HORMONE 2.88 uIU/mL (0.358-3.74)
[2024-07-19 16:00] VITALS: BP 112/61; TEMP 98.2; O2SAT 99
[2024-07-19] MEDS ORDERED: IV NS 0.9% 250 ML IV PRN (16:00)
[2024-07-19] MEDS: GABAPENTIN 100 MG CAPSULE PO SCH (17:45)
[2024-07-19] MEDS: TRAMADOL HCL 50 MG TABLET PO PRN (17:46)
[2024-07-19 19:40] VITALS: O2SAT 92
[2024-07-19 19:50] VITALS: O2SAT 98
[2024-07-19 20:00] VITALS: BP 124/61; TEMP 99.1; O2SAT 94
[2024-07-19] MEDS: IPRATROPIUM NEB FS 0.5 MG/2.5 ML AMPUL.NEB NEB SCH (20:07)
[2024-07-19] MEDS: ALBUTEROL FS 2.5 MG/3 ML VIAL.NEB NEB SCH (20:07)
[2024-07-19] MEDS: ATORVASTATIN 40 MG TABLET PO SCH (22:08)
[2024-07-20] VITALS (15 sets, daily range): BP systolic 101–149; BP diastolic 70–91; TEMP 97.5–99; O2SAT 90–100
[2024-07-20] MEDS: ACETAMINOPHEN 325 MG TABLET PO PRN (00:49)
[2024-07-20 07:01] LABS: APPEARANCE,URINE CLEAR (CLEAR); BILIRUBIN,URINE NEGATIVE (NEGATIVE); BLOOD, URINE NEGATIVE Ery/uL (NEGATIVE); COLOR,URINE YELLOW (YELLOW); KETONES,URINE NEGATIVE (NEGATIVE); LEUKOCYTE ESTERASE ,URINE NEGATIVE (NEGATIVE); NITRITE, URINE NEGATIVE (NEGATIVE); PROTEIN,URINE TRACE mg/dl (NEGATIVE); UGLUCOSE NEGATIVE (NEGATIVE)
[2024-07-20 08:01] LABS: BASOPHILS # (AUTO) 0.1 K/uL (0.0-0.2); BASOPHILS % (AUTO) 0.7 % (0.0-2.0); EOSINOPHILS # (AUTO) 0.1 K/uL (0.0-0.7); EOSINOPHILS % (AUTO) 0.7 % (0.0-6.0); HEMATOCRIT 29 % (39-51); HEMOGLOBIN 9.6 g/dL (13.5-17.5); LYMPHOCYTES # (AUTO) 1.6 K/uL (0.8-4.8); LYMPHOCYTES % (AUTO) 14.8 % (20.0-44.0); MEAN CORPUSCULAR HEMOGLOBIN 30 PG (26.0-33.0); MEAN CORPUSCULAR HGB CONC 33 g/dl (31.0-36.0); MEAN CORPUSCULAR VOLUME 90 fL (80-96); MONOCYTES # (AUTO) 0.8 K/uL (0.1-1.30); MONOCYTES % (AUTO) 7.7 % (2.0-12.0); NEUTROPHILS # (AUTO) 8.1 K/uL (1.8-8.9); NEUTROPHILS % (AUTO) 76.1 % (43.0-81.0); PLATELET COUNT (AUTO) 212 K/uL (150-450); RED BLOOD CELL COUNT(AUTO) 3.22 MIL/uL (4.5-6.0); RED CELL DISTRIBUTION WIDTH 16.6 % (11.5-15.0); WHITE BLOOD COUNT (AUTO) 10.6 K/uL (4.3-11.0)
[2024-07-20] MEDS: PANTOPRAZOLE 40 MG VIAL IV SCH (08:19)
[2024-07-20] MEDS: DOCUSATE SODIUM 250 MG CAPSULE PO SCH (08:21)
[2024-07-20] MEDS: ASCORBIC ACID 500 MG TABLET PO SCH (08:22)
[2024-07-20] MEDS: FUROSEMIDE 40 MG TABLET PO SCH (08:22)
[2024-07-20] MEDS: ESCITALOPRAM OXALATE (10 MG) 10 MG TABLET PO SCH (08:22)
[2024-07-20] MEDS: MULTIVIT W/MINERALS 1 TAB TABLET PO SCH (08:22)
[2024-07-20] MEDS: LEVOTHYROXINE SODIUM 125 MCG TABLET PO SCH (08:22)
[2024-07-20] MEDS: PROSOURCE / PROSTAT (PYXIS) 30 ML UDC PO SCH (08:24)
[2024-07-20 08:42] LABS: CALCIUM, SERUM 8.6 mg/dL (8.5-10.1); CREATININE 0.8 mg/dL (0.6-1.3); MAGNESIUM 2.3 mg/dL (1.8-2.4); PHOSPHORUS 3.3 mg/dL (2.5-4.9)
[2024-07-20 08:47] LABS: ADD URINE CULTURE NO; BACTERIA,URINE Rare /HPF (None Seen); RBC,URINE 0-2 /HPF (0-2); SQUAMOUS EPITHELIAL CELL,UR None Seen /HPF (None Seen); WBC,URINE 0-2 /HPF (0-3)
[2024-07-20] MEDS: OLANZAPINE 10 MG VIAL IM STA (17:40)
[2024-07-21] VITALS (15 sets, daily range): BP systolic 112–143; BP diastolic 55–78; TEMP 97.3–98; O2SAT 90–98
[2024-07-21 06:07] LABS: FOLIC ACID 16.9 ng/mL (>3.0)
[2024-07-21 08:21] LABS: BASOPHILS % (AUTO) 0.2 % (0.0-2.0); EOSINOPHILS % (AUTO) 0.1 % (0.0-6.0); HEMATOCRIT 31 % (39-51); HEMOGLOBIN 10.2 g/dL (13.5-17.5); LYMPHOCYTES # (AUTO) 1.4 K/uL (0.8-4.8); LYMPHOCYTES % (AUTO) 11.3 % (20.0-44.0); MEAN CORPUSCULAR HEMOGLOBIN 30 PG (26.0-33.0); MEAN CORPUSCULAR HGB CONC 33 g/dl (31.0-36.0); MEAN CORPUSCULAR VOLUME 90 fL (80-96); MONOCYTES # (AUTO) 0.9 K/uL (0.1-1.30); MONOCYTES % (AUTO) 7.6 % (2.0-12.0); NEUTROPHILS # (AUTO) 9.9 K/uL (1.8-8.9); NEUTROPHILS % (AUTO) 80.8 % (43.0-81.0); PLATELET COUNT (AUTO) 235 K/uL (150-450); RED BLOOD CELL COUNT(AUTO) 3.43 MIL/uL (4.5-6.0); RED CELL DISTRIBUTION WIDTH 16.7 % (11.5-15.0); WHITE BLOOD COUNT (AUTO) 12.2 K/uL (4.3-11.0)
[2024-07-21 08:28] LABS: CREATININE 0.7 mg/dL (0.6-1.3); MAGNESIUM 2.4 mg/dL (1.8-2.4); PHOSPHORUS 4.3 mg/dL (2.5-4.9); POTASSIUM 3.8 mmol/L (3.5-5.1)
[2024-07-21] MEDS: OLANZAPINE ZYDIS 5 MG TAB.RAPDIS PO SCH (16:26)
[2024-07-22] VITALS (12 sets, daily range): BP systolic 109–139; BP diastolic 45–70; TEMP 97.5–98.1; O2SAT 93–99
[2024-07-22] MEDS: PANTOPRAZOLE 40 MG TABLET.DR PO SCH (08:11)
[2024-07-22 12:41] LABS: BASOPHILS # (AUTO) 0.1 K/uL (0.0-0.2); BASOPHILS % (AUTO) 0.3 % (0.0-2.0); EOSINOPHILS % (AUTO) 0.1 % (0.0-6.0); HEMATOCRIT 32 % (39-51); HEMOGLOBIN 10.3 g/dL (13.5-17.5); LYMPHOCYTES # (AUTO) 1.4 K/uL (0.8-4.8); LYMPHOCYTES % (AUTO) 8.6 % (20.0-44.0); MEAN CORPUSCULAR HEMOGLOBIN 29 PG (26.0-33.0); MEAN CORPUSCULAR HGB CONC 32 g/dl (31.0-36.0); MEAN CORPUSCULAR VOLUME 90 fL (80-96); MONOCYTES # (AUTO) 1.4 K/uL (0.1-1.30); MONOCYTES % (AUTO) 8.4 % (2.0-12.0); NEUTROPHILS # (AUTO) 13.9 K/uL (1.8-8.9); NEUTROPHILS % (AUTO) 82.6 % (43.0-81.0); PLATELET COUNT (AUTO) 265 K/uL (150-450); RED BLOOD CELL COUNT(AUTO) 3.54 MIL/uL (4.5-6.0); WHITE BLOOD COUNT (AUTO) 16.8 K/uL (4.3-11.0)
[2024-07-22 12:56] LABS: CALCIUM, SERUM 8.6 mg/dL (8.5-10.1); CREATININE 0.9 mg/dL (0.6-1.3); POTASSIUM 3.5 mmol/L (3.5-5.1)
[2024-07-22 18:24] LABS: APPEARANCE,URINE CLEAR (CLEAR); BILIRUBIN,URINE NEGATIVE (NEGATIVE); BLOOD, URINE NEGATIVE Ery/uL (NEGATIVE); COLOR,URINE YELLOW (YELLOW); KETONES,URINE NEGATIVE (NEGATIVE); LEUKOCYTE ESTERASE ,URINE NEGATIVE (NEGATIVE); NITRITE, URINE NEGATIVE (NEGATIVE); PROTEIN,URINE NEGATIVE (NEGATIVE); UGLUCOSE NEGATIVE (NEGATIVE); UROBILINOGEN,URINE 0.2 EU/dL (0.2)
[2024-07-23] VITALS (13 sets, daily range): BP systolic 113–126; BP diastolic 51–68; TEMP 97.9–98.3; O2SAT 90–100
[2024-07-23 06:47] LABS: BASOPHILS % (AUTO) 0.3 % (0.0-2.0); EOSINOPHILS # (AUTO) 0.1 K/uL (0.0-0.7); EOSINOPHILS % (AUTO) 1.1 % (0.0-6.0); HEMATOCRIT 31 % (39-51); HEMOGLOBIN 10.4 g/dL (13.5-17.5); LYMPHOCYTES # (AUTO) 1.8 K/uL (0.8-4.8); LYMPHOCYTES % (AUTO) 16.6 % (20.0-44.0); MEAN CORPUSCULAR HEMOGLOBIN 30 PG (26.0-33.0); MEAN CORPUSCULAR HGB CONC 33 g/dl (31.0-36.0); MEAN CORPUSCULAR VOLUME 90 fL (80-96); MONOCYTES # (AUTO) 0.9 K/uL (0.1-1.30); MONOCYTES % (AUTO) 8.8 % (2.0-12.0); NEUTROPHILS # (AUTO) 7.8 K/uL (1.8-8.9); NEUTROPHILS % (AUTO) 73.2 % (43.0-81.0); PLATELET COUNT (AUTO) 215 K/uL (150-450); RED BLOOD CELL COUNT(AUTO) 3.47 MIL/uL (4.5-6.0); RED CELL DISTRIBUTION WIDTH 17.2 % (11.5-15.0); WHITE BLOOD COUNT (AUTO) 10.7 K/uL (4.3-11.0)
[2024-07-23 07:21] LABS: CALCIUM, SERUM 9.1 mg/dL (8.5-10.1); CREATININE 0.7 mg/dL (0.6-1.3); MAGNESIUM 2.4 mg/dL (1.8-2.4); PHOSPHORUS 3.3 mg/dL (2.5-4.9); POTASSIUM 3.6 mmol/L (3.5-5.1)
[2024-07-23] MEDS ORDERED: LEVO500T90 PO (15:10)
[2024-07-24 02:08] VITALS: O2SAT 96
[2024-07-24 02:23] VITALS: O2SAT 100
[2024-07-24 08:47] VITALS: O2SAT 98
[2024-07-24 09:02] VITALS: O2SAT 99
[2024-07-24] MEDS: LEVOFLOXACIN (250MG) 250 MG TABLET PO SCH (12:45)
== END 2024-07-24 13:35 | disposition home health service (06) | DRG 907 ==
LOC: ER 07:53 → TELE1 09:58 → TELE 07-20 18:16 → MED 07-23
PROVIDERS: ATTEND Nurse Practitioner Acute Care
PROC: 0YQF0ZZ Repair Right Knee Region, Open Approach (ICD-10-PCS; principal; 2024-07-19)
DX: S09.90XA Unspecified injury of head, initial encounter (principal); G93.41 Metabolic encephalopathy; J15.69 Pneumonia due to other Gram-negative bacteria; L03.115 Cellulitis of right lower limb; J44.0 Chronic obstructive pulmonary disease with (acute) lower respiratory infection; F01.53 Vascular dementia, unspecified severity, with mood disturbance; F01.52 Vascular dementia, unspecified severity, with psychotic disturbance; W06.XXXA Fall from bed, initial encounter; Y92.099 Unspecified place in other non-institutional residence as the place of occurrence of the external cause; I50.9 Heart failure, unspecified; I11.0 Hypertensive heart disease with heart failure; F01.50 Vascular dementia, unspecified severity, without behavioral disturbance, psychotic disturbance, mood disturbance, and anxiety; L85.3 Xerosis cutis; S41.112A Laceration without foreign body of left upper arm, initial encounter; S61.511A Laceration without foreign body of right wrist, initial encounter; S81.011A Laceration without foreign body, right knee, initial encounter; Z66 Do not resuscitate; Z20.822 Contact with and (suspected) exposure to COVID-19; G62.9 Polyneuropathy, unspecified; N40.0 Benign prostatic hyperplasia without lower urinary tract symptoms; Z68.32 Body mass index [BMI] 32.0-32.9, adult; E66.9 Obesity, unspecified; E03.9 Hypothyroidism, unspecified; E78.5 Hyperlipidemia, unspecified; K21.9 Gastro-esophageal reflux disease without esophagitis; R29.6 Repeated falls; R26.9 Unspecified abnormalities of gait and mobility; Z79.899 Other long term (current) drug therapy; Z87.891 Personal history of nicotine dependence; Z88.0 Allergy status to penicillin; Z88.2 Allergy status to sulfonamides; Z91.148 Patient's other noncompliance with medication regimen for other reason; M19.90 Unspecified osteoarthritis, unspecified site; F32.A Depression, unspecified; Z96.653 Presence of artificial knee joint, bilateral; Z79.51 Long term (current) use of inhaled steroids; Z79.890 Hormone replacement therapy
CPT/HCPCS: 36415; 70450-TC; 71045-TC; 73562; 80048-TC; 81001; 82607-TC; 83735-TC; 83921; 84100-TC; 84425; 84443-TC; 84484-TC; 85025-TC; 85730-TC; 87040-TC; 87081-TC; 87086-TC; 92526; 92611-TC; 94760-TC; 94761-TC; 94799-TC; 97110-TC; 97112-TC; 97116-TC; 97530-TC; 97535-TC; A4216; A4223; A6253; A6403; G0378; J1956; J2470; J3490; J7030; J7040; J7050